=== PATIENT | female | born 1965 | race Caucasian/White ===

== ENCOUNTER → 2016-09-29 10:00 | Outpatient (CLI) | payer MEDICARE, MEDICAID ==
[2016-04-17 09:12] VITALS: BMI 34.7
[~2016-09-29 10:00] MED LIST: BAYER CHEWABLE81 MG PO; BYDUREON SC; DESERYL100 MG PO; FENOFIBRATE134 MG PO; GLUCOPHAGE500 MG PO; INVEGA6 MG/BLIST PO; ISOSORBIDE MONO30 M1 PO; LEXAPRO20 MG PO; LIPITOR40 MG PO; MOBIC7.5 MG PO; NITROSTAT0.4 MG SL; PAXIL40 MG PO; PLAVIX75 MG PO; TOPAMAX50 MG PO; XANAX2 MG PO
== END | disposition home or self-care (01) ==
LOC: D.US 09-22 13:00
DX: R92.8 Other abnormal and inconclusive findings on diagnostic imaging of breast (principal)

== ENCOUNTER 2016-10-01 21:35 | Emergency (ER) | payer MEDICARE, MEDICAID ==
[2016-04-17 09:12] VITALS: BMI 34.7
== END 2016-10-02 00:05 | disposition home or self-care (01) ==
LOC: D.ER 21:35
DX: G43.909 Migraine, unspecified, not intractable, without status migrainosus (principal); F41.9 Anxiety disorder, unspecified; F31.9 Bipolar disorder, unspecified; F43.10 Post-traumatic stress disorder, unspecified

== ENCOUNTER 2016-10-11 13:35 | Emergency (ER) | payer MEDICARE, MEDICAID ==
[2016-04-17 09:12] VITALS: BMI 34.7
[2016-10-11 14:17] LABS: BASOPHILS 0.3 % (0.0-2.0); EOSINOPHILS 2.5 % (0-7); HEMATOCRIT 40.3 % (36.0-48.0); HEMOGLOBIN 13.5 g/dL (12-16); IMMATURE GRANULOCYTES 0.5 % (0-5); LYMPHOCYTES 36.8 % (15-50); MCH 31.5 pg (26.0-34.0); MCHC 33.5 g/dL (31.0-37.0); MCV 94.2 fL (80.0-100.0); MEAN PLATELET VOLUME 9.8 fL (7.4-10.4); MONOCYTES 7.9 % (2-11); PLATELET COUNT 156 10x3/uL (130-400); RBC 4.28 10x6/uL (4.00-5.40); RDW 13.5 % (11.5-14.5); WBC 3.7 10x3/uL (4.8-10.8)
[2016-10-11 14:38] LABS: ALBUMIN 3.3 g/dL (3.4-5.0); ALKALINE PHOSPHATASE 61 U/L (46-116); ALT (SGPT) 60 U/L (10-68); BILIRUBIN - TOTAL 0.44 mg/dL (0.2-1.3); CALC OSMOLALITY 279 mosm/kg (275-300); CARBON DIOXIDE 26.1 mmol/L (21.0-32.0); CHLORIDE - SERUM 103 mmol/L (98-107); CREATININE - SERUM 0.7 mg/dL (0.6-1.3); GLUCOSE 207 mg/dL (74-106); POTASSIUM - SERUM 3.8 mmol/L (3.5-5.1); PROTEIN - SERUM 6.6 g/dL (6.4-8.2); SODIUM 137 mmol/L (136-145); UREA NITROGEN 12 mg/dL (7-18); eGFR NON AFRICAN AMERICAN > 90 mL/min (90-120)
[2016-10-11 14:50] LABS: CKMB 0.4 U/L (0.0-3.6); CREATINE KINASE 30 UL (21-215); TROPONIN-I < 0.017 ng/mL (0.000-0.060)
== END 2016-10-11 15:21 | disposition home or self-care (01) ==
LOC: D.ER 13:35
PROVIDERS: Emergency Medicine
DX: M94.0 Chondrocostal junction syndrome [Tietze] (principal); F41.9 Anxiety disorder, unspecified; F31.9 Bipolar disorder, unspecified; E11.9 Type 2 diabetes mellitus without complications; F43.10 Post-traumatic stress disorder, unspecified; F17.200 Nicotine dependence, unspecified, uncomplicated

== ENCOUNTER 2017-02-15 20:11 | Emergency (ER) | payer MEDICARE, MEDICAID ==
[2016-04-17 09:12] VITALS: BMI 34.7
== END 2017-02-15 21:46 | disposition home or self-care (01) ==
LOC: D.ER 20:11 → EDBD 20:11 → D.ER 21:46
DX: N61.1 Abscess of the breast and nipple (principal); F41.9 Anxiety disorder, unspecified; F31.89 Other bipolar disorder; M94.0 Chondrocostal junction syndrome [Tietze]; F43.10 Post-traumatic stress disorder, unspecified

== ENCOUNTER 2017-03-03 16:59 | Emergency (ER) | payer MEDICARE, MEDICAID ==
[2016-04-17 09:12] VITALS: BMI 34.7
== END 2017-03-03 17:00 | disposition left against medical advice (07) ==
LOC: D.ER 16:59
DX: K08.89 Other specified disorders of teeth and supporting structures (principal)

== ENCOUNTER 2017-04-02 13:57 | Emergency (ER) | payer MEDICARE, MEDICAID ==
[2016-04-17 09:12] VITALS: BMI 34.7
== END 2017-04-02 18:46 | disposition home or self-care (01) ==
LOC: D.ER 13:57
DX: K59.00 Constipation, unspecified (principal); F17.200 Nicotine dependence, unspecified, uncomplicated

== ENCOUNTER → 2017-08-22 05:43 | Outpatient (CLI) | payer MEDICARE, MEDICAID ==
[2016-04-17 09:12] VITALS: BMI 34.7
--- NOTE | ~2017-08-22 | HEMODYNAMI ---
PATIENT:BRIAN BINGHAM MEDICAL RECORD: [id number] : 65 LOCATION:[facility] ADMISSION DATE: 08/22/17 Generatedon:08/22/20179:43 Patient name: BRIAN BINGHAM Patient #: [id number] SSN: : 1965 Date of study: 08/22/2017 Page: Of Hemodynamic Procedure Report Patient Data Patient Demographics Procedure consent was obtained First Name: BRIAN Gender: Female Last Name: ZACHERY : 1965 Middle Initial: BIBI Age: 52 year(s) Patient #: [id number] Race: Additional ID: [id number] Contact details Address: [address] [place] [address] State: [place] City: [facility] Zip code: [address] Past Medical History History of disease Date Diagnosis Comments CAD Allergies: No known allergies Admission Admission Data Admission Date: 08/22/2017 Admission Time: 5:43 Lab Results Lab Result Date: 08/22/2017 Lab Result Time: 0:00 Biochemistry Name Units Result Min Max BUN mg/dl 10 --(-*--)-- 7 18 Creatinine mg/dl 0.6 --(*---)-- 0.6 1.3 CBC Name Units Result Min Max Hemoglobin g/dl 14.5 --(*---)-- 13.5 17.5 Procedure Procedure Types Cath Procedure Diagnostic Procedure C [facility] w/Coronaries FFR/IVUS Intra-Coronary IVUS Initial PCI Procedure Coronary Stent Miscellaneous Procedures Moderate Sedation up to 15 minutes Procedure Description Procedure Date Procedure Date: 08/22/2017 Procedure Start Time: 9:25 Procedure End Time: 9:43 Procedure Staff Name Function Kevin Shafer MD Performing Physician Dragan Alves RN Nurse Evonne Hallman RN Nurse Khadijah Livingston RT Monitor Umm Weldon RT Scrub Procedure Data Cath Procedure Fluoroscopy Diagnostic fluoroscopy Total fluoroscopy Time: 3.6 time: 3.6 min min Diagnostic fluoroscopy Total fluoroscopy dose: 842 dose: 842 mGy mGy Contrast Material Contrast Material Type Amount (ml) Isovue 300 92 Entry Location Entry Primary Successful Side Size Upsize Upsize Entry Closure Succes sful Closure Location (Fr) 1 (Fr) 2 (Fr) Remarks Device Remarks Femoral Right 5 Fr 6 Fr Exoseal artery Short Estimated blood loss: 10 ml Diagnostic catheters Device Type Used For End Catheter Placement MULTIPACK Pigtail 5 Fr Procedure catheter MULTIPACK JL 4.0 5Fr Procedure catheter MULTIPACK 3DRC 5Fr Procedure catheter Procedure Complications No complications Procedure Medications Medication Administration Route Dosage 0.9% NaCl I.V. 100 ml/hr Oxygen NC 2 l/min Lidocaine 2% added to field 20 Heparin Flush Bag added to field 2 bags (1000units/500ml NS) Benadryl I.V. 50 mg Radial Cocktail added to field 1 syringe (Verapomil 2mg/Nitro 400mcg/Heparin 1500units) Fentanyl I.V. 50 mcg Versed I.V. 1 mg Versed I.V. 1 mg Fentanyl I.V. 50 mcg Versed I.V. 1 mg Versed I.V. 1 mg Integrilin (Bolus I.V. 6.8 ml 2mg/ml) Heparin Bolus I.V. 4000 units Plavix P.O. 600 mg Hemodynamics Rest HGB: 14.5 (g/dl) Heart Rate: 64 (bpm) Snapshots Pre Cath Intra NCS Post Cath Vital Signs Time Heart Resp SPO2 etCO2 NIBP (mmHg) Rhythm Pain Sedation Rate (ipm) (%) (mmHg) Status Level (bpm) 9:09:16 64 20 100 31.8 108/70(81) NSR 0 (11) 10(A) , No pain 9:13:19 59 20 98 28.8 109/73(87) NSR 0 (11) 10(A) , No pain 9:17:25 61 19 100 31.8 121/75(105) NSR 0 (11) 10(A) , No pain 9:21:33 70 25 94 30.3 107/78(90) NSR 0 (11) 9(A) , No pain 9:25:39 62 20 97 42.4 100/68(81) NSR 0 (11) 9(A) , No pain 9:29:36 81 16 94 11.3 118/84(110) NSR 0 (11) 9(A) , No pain 9:33:42 82 14 94 31 132/83(114) NSR 0 (11) 9(A) , No pain 9:37:54 81 18 99 42.4 124/81(104) NSR 0 (11) 10(A) , No pain 9:42:04 75 11 98 42.4 115/80(98) NSR 0 (11) 10(A) , No pain Medications Time Medication Route Dose Verified Delivered Reason Note s Effectiveness by by 9:08:44 0.9% NaCl I.V. 100ml/hr Kevin Evonne used for Hollis Hallman RN procedure 9:08:54 Oxygen NC 2 l/min Kevin Evonne Per physician Hollis Hallman RN 9:09:07 Lidocaine 2% added 20ml Kevin Kevin for local to vial Hollis Shafer MD anesthetic field 9:09:17 Heparin Flush added 2 bags Kevin Brown used for Bag to Hollis Shafer MD procedure (1000units/500ml field NS) 9:11:06 Benadryl I.V. 50 mg Kevin Brown used for Hollis Shafer MD procedure 9:18:30 Radial Cocktail added 1 Kevinbrenda Brown for (Verapomil to syringe Hollis Shafer MD vasodilation 2mg/Nitro field 400mcg/Heparin 1500units) 9:19:07 Fentanyl I.V. 50 mcg Kevin Zamorafany for sedation Hollis Hallman RN 9:19:16 Versed I.V. 1 mg Kevin Zamorafany for sedation Hollis Hallman RN 9:23:38 Versed I.V. 1 mg Kevin Zamorafany for sedation Hollis Hallman RN 9:23:48 Fentanyl I.V. 50 mcg Kevin Zamorafany for sedation Hollis Hallman RN 9:25:48 Versed I.V. 1 mg Kevin Zamorafany for sedation Hollis Hallman RN 9:29:33 Heparin Bolus I.V. 4000 Kevin Evonne for veri fied units Hollis Hallman RN anticoagulation by 9:29:37 Integrilin I.V. 6.8 ml Kevin Zamorafany for veri fied (Bolus 2mg/ml) Hollis Hallman RN antiplatelet with therapy . waste 3.2ml 9:31:37 Versed I.V. 1 mg Kevin Douglass for sedation Hollis Hallman RN 9:32:59 Plavix P.O. 600 mg Kevin Douglass for veri fied Hollis Hallman RN antiplatelet by therapy Procedure Log Time Note 8:39:26 Informed consent obtained and on chart 8:39:31 Diagnostic Cath Status : Elective 8:40:17 Umm Weldon RT(R) sent for patient. Start room use. 8:40:18 Time tracking: Regular hours 8:40:23 Plan of Care:Hemodynamics will remain stable., Cardiac rhythm will remain stable., Comfort level will be maintained., Respiratory function will remain adequate., Patient/ family verbilizes understanding of procedure., Procedure tolerated without complication., Recovers from procedure without complications.. 8:51:12 Lab Result : BUN 10 mg/dl 8:51:12 Lab Result : Hemoglobin 14.5 g/dl 8:51:12 Lab Result : Creatinine 0.6 mg/dl 9:00:03 Patient received from ED to CCL 2 Alert and oriented. Tansferred to table in Supine position. 9:00:04 Warm blankets applied, and kike hugger turned on for patient comfort. 9:00:05 Correct patient and procedure confirmed by team. 9:00:05 ECG and BP/O2 sat monitors applied to patient. 9:08:16 Vital chart was started 9:08:25 Baseline sample Acquired. 9:08:29 Rhythm: sinus rhythm 9:08:30 Full Disclosure recording started 9:08:34 H&P Date Dictated: 08/22/2017 New H&P dictated by physician.. 9:08:35 Pre-procedure instructions explained to patient. 9:08:36 Pre-op teaching completed and patient verbalized understanding. 9:08:37 Family in waiting room. 9:08:38 Patient NPO since Midnight. 9:08:44 0.9% NaCl 100ml/hr I.V. was administered by Evonne Hallman RN; used for procedure; 9:08:50 Is the patient allergic to Iodine/contrast media? No. 9:08:53 Was the patient premedicated? No 9:08:54 Oxygen 2 l/min NC was administered by Evonne Hallman RN; Per physician; 9:09:02 Is patient on blood thinner?No 9:09:07 Lidocaine 2% 20ml vial added to field was administered by Kevin Shafer MD; for local anesthetic; 9:09:17 Heparin Flush Bag (1000units/500ml NS) 2 bags added to field was administered by Kevin Shafer MD; used for procedure; 9:11:06 Benadryl 50 mg I.V. was administered by Kevin Shafer MD; used for procedure; 9:17:39 Patient diabetic? Yes. 9:17:40 If diabetic: On Metformin? No 9:17:45 Snore? Yes 9:17:46 Sleep apnea? Yes 9:17:53 Dentures? No ? 9:18:04 Patient pain scale 0/10 ?. 9:18:11 IV patent on arrival in left forearm with 0.9% NaCl at [facility]. 9:18:16 Lab results completed and on chart. 9:18:23 Right Radial & Right Groin area was prepped with chlora-prep and draped in sterile fashion 9:18:24 Alarms reviewed by R. N. 9:18:25 Sharps counted by scrub and verified by R.N. 9:18:26 Physician paged 9:18:26 Physician arrived 9:18:27 --------ALL STOP TIME OUT------ 9:18:28 Final Timeout: patient, procedure, and site verified with staff and physician. All members of the team are in agreement. 9:18:30 Radial Cocktail (Verapomil 2mg/Nitro 400mcg/Heparin 1500units) 1 syringe added to field was administered by Kevin Shafer MD; for vasodilation; 9:18:30 Right Radial & Right Groin site verified by team. 9:18:33 Physical assessment completed. ASA score P 2 - A patient with mild systemic disease as per Kevin Shafer MD. 9:18:39 Sedation plan: IV Moderate Sedation Medication:Versed, Fentanyl 9:19:07 Fentanyl 50 mcg I.V. was administered by Evonne Hallman RN; for sedation; 9:19:16 Versed 1 mg I.V. was administered by Evonne Hallman RN; for sedation; 9:21:32 Zero performed for pressure channel P1 9:21:48 Procedure started. 9:23:38 Versed 1 mg I.V. was administered by Evonne Hallman RN; for sedation; 9::48 Fentanyl 50 mcg I.V. was administered by Evonne Hallman RN; for sedation; 9:24:01 Use device set Femoral Dx 9:25:04 Local anesthetic to right femoral artery with Lidocaine 2% by Kevin Shafer MD.INITIAL ACCESS ONLY 9:25:06 ACIST Syringe (79861) opened to sterile field. 9:25:06 Bag Decanter (2002S) opened to sterile field. 9:25:07 Medline Cath Pack ([id number]) opened to sterile field. 9:25:07 SHEATH 5FR [place] (JRE255) opened to sterile field. 9:25:08 DIAGNOSTIC WIRE .035 260cm J wire (329972) opened to sterile field. 9:25:12 ACIST Hand Control (41480) opened to sterile field. 9:25:12 ACIST Manifold (61509) opened to sterile field. 9:25:13 DIAGNOSTIC Multipack 5Fr catheter set (JL2764) opened to sterile field. 9:25:13 Tegaderm 4 x 4 (1626W) opened to sterile field. 9:25:14 PERCUTANEOUS ENTRY 19GA needle opened to sterile field. 9:25:48 Versed 1 mg I.V. was administered by Evonne Hallman RN; for sedation; 9::48 A 5 Fr sheath was inserted into the Right Femoral artery 9:26:29 A MULTIPACK Pigtail 5 Fr catheter was advanced over the wire and used for Procedure. 9:27:01 EF : 50 % 9:27:04 Catheter removed. 9:27:14 A MULTIPACK JL 4.0 5Fr catheter was advanced over the wire and used for Procedure. 9:28:26 Catheter removed. 9:28:36 A MULTIPACK 3DRC 5Fr catheter was advanced over the wire and used for Procedure. 9:29:33 Heparin Bolus 4000 units I.V. was administered by Evonne Hallman RN; for anticoagulation; verified by 9:29:37 Integrilin (Bolus 2mg/ml) 6.8 ml I.V. was administered by Evonne Hallman RN; for antiplatelet therapy; verified with . waste 3.2ml 9:30:57 GUIDE 6FR AR 2.0 SH catheter ([id number]) opened to sterile field. 9:30:58 WHISPER 300cm guide wire ([id number]) opened to sterile field. 9:30:59 INFLATOR Merit BasixCompak (OX8768) opened to sterile field. 9:31:00 SHEATH 6FR [place] (INP996) opened to sterile field. 9:31:09 [place] Level[place] Eagleye IVUS Catheter (76359M) opened to sterile field. 9:31:11 Proceeding to intervention. 9:31:36 Sheath upsized to a 6 Fr Short. 9:31:37 Versed 1 mg I.V. was administered by Evonne Hallman RN; for sedation; 9:31:42 6 Fr AR 2 guide catheter was inserted over the wire 9:31:47 ? wire advanced. 9:31:51 Wire advanced across lesion. 9:32:59 Plavix 600 mg P.O. was administered by Evonne Hallman RN; for antiplatelet therapy; verified by 9:33:59 IVUS catheter removed over wire. 9:36:49 Inflation Number: 1 A INTEGRITY OTW 3.0 X 30 stent ([id number]) was prepped and advanced across the Prox RCA. The stent was deployed at 11 CHARANJIT for 0:13 (min:sec). 9:40:22 EXOSEAL 6Fr (EX600) opened to sterile field. 9:40:29 Wire removed. 9:40:30 Guide catheter removed. 9:40:43 Sheath removed intact; hemostasis achieved with Exoseal to the Right Femoral artery. 9:40:46 Procedure ended.(Physican Out) 9:40:59 Fluoroscopy time 03.60 minutes. 9:41:03 Fluoroscopy dose: 842 mGy 9:41:03 Flurop Dose total: 842 9:41:16 Contrast amount:Isovue 300 92ml. 9:41:19 Sharps counted by scrub and verified by R.N. 9:41:24 Insertion/operative site no bleeding no hematoma. 9:41:29 Post-op/insertion site Right Femoral artery dressed using a 4 x 4 and Tegaderm. 9:41:31 Post Procedure Pulses reassessed and unchanged 9:41:34 Post-procedure physical assessment completed. ASA score P 2 - A patient with mild systemic disease as per Kevin Shafer MD. 9:41:43 Post procedure rhythm: sinus rhythm 9:42:05 Estimated blood loss: 10 ml 9:42:07 Post procedure instruction explained to patient.Patient verbalizes understanding. 9:42:09 Patient needs reinforcement of post procedure teaching. 9:42:35 Procedure type changed to Cath procedure, Diagnostic procedure, LHC, C w/Coronaries, FFR/IVUS, Intra-Coronary IVUS Initial, PCI procedure, Coronary Stent, Miscellaneous Procedures, Moderate Sedation up to 15 minutes 9:42:37 Procedure and supply charges have been captured, reviewed, submitted and are correct. 9:43:02 Procedure Complication : No complications 9:43:05 Vital chart was stopped 9:43:05 See physician's report for complete and final results. 9:43:07 Report given to Pre/Post Procedure Room. 9:43:12 Patient transfered to Pre/Post Procedure Room with Stretcher. 9:43:14 Procedure ended. 9:43:14 Full Disclosure recording stopped 9:43:19 End room use (Document Last) Intervention Summary Intervention Notes Time ActionType Lesion and Equipment Action# Pressure Duration Attributes Used 9:36:[address] Place stent Prox RCA INTEGRITY 1 11 00:13 OTW 3.0 X 30 stent ([id number]) Device Usage Item Name Manufacture Quantity Catalog Hospital Part Current Minimal Lot# / Number Charge Number Stock Stock Serial# Code ACIST Acist 1 44670 633308 888413 617221 20 Syringe Medical (24854) Systems Inc Bag Decanter Microtek 1 2001S 399569 77843 094516 5 () Medical Inc. Medline Cath Cardinal 1 [id number] 673375 26525 826895 5 Pack Health ([id number]) SHEATH 5FR Terumo 1 HOA684 473985 123762 303579 40 [place] (SUW200) DIAGNOSTIC [place] 1 833425 800144 345753 077735 30 WIRE .035 260cm J wire (767282) ACIST Hand Acist 1 01254 000056 973128 843597 5 Control Medical (18870) Systems Inc ACIST Acist 1 95776 055707 888637 926396 5 Manifold Medical (98087) Systems Inc DIAGNOSTIC Cardinal 1 HZ5247 144362 61255 595624 30 Multipack Health 5Fr catheter set (YK6228) Tegaderm 4 x 3M 1 1626W 857208 067212 386851 5 4 (1626W) PERCUTANEOUS [place] Medical 1 N93257 827786 562222 5 ENTRY 19GA needle MULTIPACK Cardinal 1 514210 5 Pigtail 5 Fr Health catheter MULTIPACK JL Cardinal 1 532525 5 4.0 5Fr Health catheter MULTIPACK Cardinal 1 361982 5 3DRC 5Fr Health catheter GUIDE 6FR AR Medtronic 1 [id number] 897515 47497 441218 1 2.0 SH catheter ([id number]) WHISPER Ugevara 1 [id number] 941350 025922 946352 5 300cm guide Vascular wire ([id number]) INFLATOR [employer]orum[employer].com 1 CA8907 421160 322224 995212 15 [employer] Medical BasixCompak (PH1802) SHEATH 6FR Terumo 1 NMW131 478009 837783 571306 40 [place] (TGI990) [place] 1 25403A 225796 376243 981414 8 Level[place] Eagleye IVUS Catheter (21480O) INTEGRITY Medtronic 1 [id number] 896343 734208 7 [id number] OTW 3.0 X 30 stent ([id number]) EXOSEAL 6Fr Cardinal 1 EX600 189898 583217 721217 10 (EX600) Health Signature Audit [place] Stage Time Signature Unsigned Intra-Procedure 08/22/2017 Khadijah Livingston 9:43:46 AM RT(R) Signatures Monitor : Khadijah Livingston Signature : RT Date : Time : [facility] [address] [place] [address]
[2017-08-22 06:35] LABS: BASOPHILS 0.2 % (0-2); EOSINOPHILS 0.5 % (0-7); HEMATOCRIT 41.5 % (36.0-48.0); HEMOGLOBIN 14.5 g/dL (12-16); IMMATURE GRANULOCYTES 0.9 % (0-5); LYMPHOCYTES 25.4 % (15-50); MCH 31.9 pg (26.0-34.0); MCHC 34.9 g/dL (31.0-37.0); MCV 91.2 fL (80.0-100.0); MEAN PLATELET VOLUME 10.1 fL (7.4-10.4); MONOCYTES 8.6 % (2-11); NEUTROPHILS 64.4 % (40-80); RBC 4.55 10x6/uL (4.00-5.40); RDW 13.4 % (11.5-14.5); WBC 5.7 10x3/uL (4.8-10.8)
[2017-08-22 06:39] LABS: PLATELET COUNT 193 10x3/uL (130-400)
[2017-08-22 06:56] LABS: ALBUMIN 3.2 g/dL (3.4-5.0); ALKALINE PHOSPHATASE 63 U/L (46-116); ALT (SGPT) 36 U/L (10-68); BILIRUBIN - TOTAL 0.75 mg/dL (0.2-1.3); CALC OSMOLALITY 281 mosm/kg (275-300); CALCIUM 8.8 mg/dL (8.5-10.1); CARBON DIOXIDE 25.2 mmol/L (21.0-32.0); CHLORIDE - SERUM 99 mmol/L (98-107); CREATININE - SERUM 0.6 mg/dL (0.6-1.3); POTASSIUM - SERUM 3.3 mmol/L (3.5-5.1); PROTEIN - SERUM 6.7 g/dL (6.4-8.2); SODIUM 137 mmol/L (136-145); UREA NITROGEN 10 mg/dL (7-18); eGFR NON AFRICAN AMERICAN > 90 mL/min (90-120)
[2017-08-22 07:01] LABS: GLUCOSE 262 mg/dL (74-106)
[2017-08-22 07:12] LABS: CHOL - HDL RATIO 8.3 ratio (2.3-4.1); CHOLESTEROL, TOTAL 224 mg/dL (0-200); CKMB 0.5 U/L (0.0-3.6); CREATINE KINASE 21 UL (21-215); HDL CHOLESTEROL 27 mg/dL (32-96); LDL CHOLESTEROL 150 mg/dL (0-100); LDL-HDL RATIO 5.6 ratio (1.5-3.5); TRIGLYCERIDE 236 mg/dL (30-200)
[2017-08-22 07:19] LABS: TROPONIN-I 0.083 ng/mL (0.000-0.060)
[2017-08-22 07:45] LABS: MAGNESIUM - SERUM 1.5 mg/dL (1.8-2.4)
--- NOTE | 2017-08-22 10:17 | NUR ---
1010 LYING FLAT, ROOM AIR. NSR ON ESCROW PROCESSOR, RATE 67 WITH NO C/O CHEST PAIN. PULSES PALP X 4. R GROIN 6F EXOSEAL C/D/I W NO HEMATOMA OR BLEEDING. NO FAMILY AT SIDE.
--- NOTE | 2017-08-22 10:37 | NUR ---
LYING FLAT, DAUGHTER LUZ AT BEDSIDE. PATIENT VITALS ALL WNL. ROOM AIR. R GROIN 6F EXOSEAL C/D/I W NO HEMATOMA OR BLEEDING. EATING TURKEY SANDWICH AND SIPPING WATER WITH ASSIST FROM DAUGHTER. DENIES NEEDS AT THIS TIME.
--- NOTE | 2017-08-22 11:09 | NUR ---
RESTING QUIETLY WITH FAMILY AT SIDE DENIED PAIN OR NEEDS 6 FR EXOSEAL R/GROIN CDI
--- NOTE | 2017-08-22 12:03 | NUR ---
VOICED NO COMPLAINTS WITH 6 FR EXOSEAL R/GROIN CDI VSS
--- NOTE | 2017-08-22 12:35 | NUR ---
RESTING QUIETLY WITH EYES CLOSED NO DISTRESS R/GROIN CDI
--- NOTE | 2017-08-22 13:33 | NUR ---
REPOSITIONED TO SITTING WITH HOB UP 30 DEGREES FOR COMFORT. R/GROIN CDI NO BLEEDING NO HEMATOMA NOTED. PIV REMOVED WITH DRESSING APPLIED. PATIENT DENIED CHEST PAIN
--- NOTE | 2017-08-22 13:55 | NUR ---
VERBAL AND WRITTEN DISCHARGE GONE OVER WITH PATIENT R/GROIN CDI NO BLEEDING NOTED. LEFT VIA WC TO PARKING FOR TRANSPORT HOME
--- NOTE | 2017-08-28 12:15 | OP ---
PATIENT NAME: BRIAN BINGHAM MEDICAL RECORD: [id number] :65 LOCATION:D.CAT ADMISSION DATE: SURGEON: EMELY STAHL MD DATE OF OPERATION: 08/22/2017 PROCEDURES: 1. PTCA stent to RCA. 2. Intravascular ultrasound to RCA. 3. Left heart catheterization. 4. Selective coronary angiography. 5. Left ventriculogram. INDICATION: Angina and coronary artery disease. PROCEDURE IN DETAIL: After informed consent was obtained and after a detailed explanation of the risks, benefits as well as alternative therapies, the patient elected to proceed with angiogram and angioplasty. The right femoral area was prepped and draped in normal sterile fashion. The right femoral artery was cannulated via modified Seldinger technique with placement of 6-[place]izen [place] sheath. All catheters exchanged through this sheath. FINDINGS: The left ventriculogram was performed in standard 30-degree ZUÑIGA view, reveals good cardiac wall motion throughout all segments. Overall ejection fraction estimated 60%. SELECTIVE CORONARY ANGIOGRAPHY: 1. Left main has no significant angiographic disease. 2. Left anterior descending has [id number] irregularities, but no flow-limiting stenosis. 3. The left circumflex has previously placed stent that is widely patent. Obtuse marginal comes off in the stented area with 90% stenosis. 4. The right coronary artery has a long area of greater than 70% stenosis in the mid vessel confirmed by intravascular ultrasound. PTCA STENT OF THE RIGHT CORONARY ARTERY: The stent used was 3.0 x 30 mm Integrity. Result was 0% residual stenosis. OVERALL IMPRESSION: Successful percutaneous transluminal coronary angioplasty stent of the right coronary artery going from greater than 70% initial stenosis to 0% residual stenosis. TRANSINT:[id number] Voice Confirmation ID: [id number] DOCUMENT ID: [id number] EMELY STAHL MD at 1215 CC: [id number] DICTATION DATE: 08/22/17 0942 SAP PORTAL DEVELOPER: 08/22/17 1214 [facility] CLI 08/22/[address] [address]
--- NOTE | 2017-08-28 12:15 | CN ---
PATIENT NAME:BRIAN HERNANDEZ MEDICAL RECORD: [id number] : 65 LOCATION:D.CAT ADMIT DATE: ACCOUNT: [id number] CONSULTING PHYSICIAN: EMELY STAHL MD REFERRING PHYSICIAN: GIGI COBOS MD DATE OF CONSULTATION: 08/22/2017 CARDIOLOGY CONSULT DIAGNOSES: 1. Chest pain compatible with angina. 2. Coronary artery disease. 3. Previous multivessel PTCA and stent in 2014. 4. Hypertension. 5. Hyperlipidemia. HISTORY: Ms. Hernandez presents with 2 days of increasing anginal symptomatology in an unstable fashion, just like that of her previous angina. Last cardiac intervention was 2 years ago. She had 2-vessel PTCA and stent at that time. REVIEW OF SYSTEMS: The patient reports easy bruising but reports no swollen glands. The patient reports no fever, no night sweats, no significant weight gain, no significant weight loss. No significant exercise tolerance. The patient reports no dry eyes, no irritation, no vision change. Patient reports no difficulty hearing and no ear pain. Patient reports no frequent nose bleeds or nose and sinus problems. Patient reports on arm pain on exertion. No shortness of breath while lying down. No history of heart murmur. Patient reports no cough, no wheezing or coughing up blood. Patient reports no abdominal pain, no vomiting. Normal appetite. No diarrhea and not vomiting blood. No nausea and no constipation. Patient reports no incontinence. No difficulty urinating. No hematuria. No increased frequency. Patient reports no muscle aches. No weakness, no arthralgias, no back pain. No swelling of the extremities. Patient reports no abnormal mole, no jaundice, no rashes. Reports no loss of consciousness. No weakness and no numbness. No seizures, dizziness, or headaches. The patient reports no depression, no sleep disturbance, feeling safe in a relationship and no alcohol abuse. Patient reports on fatigue. Reports no runny nose or sinus pressure. No itching, no hives, and no frequent sneezing. PHYSICAL EXAMINATION: GENERAL APPEARANCE: Well-nourished, well-developed, appears stated age. Level of distress, comfortable. PSYCHIATRIC: Mental status, alert, normal affect. Orientation, oriented to time, place and person. EYES: Lids and conjunctiva, noninjected. No discharge, no pallor. ENT: Lips, teeth, gums, normal dentition. Oropharynx, no cyanosis, no pallor. NECK: Carotid arteries, bilateral normal upstroke, no bruits, no thrills. JUGULAR VEINS: No jugular venous pressure or distention. CERVICAL LYMPH NODES: Nontender, nonenlarged. THYROID: Not enlarged. Nontender. No nodules. LUNGS: Respiratory effort, unlabored. CHEST: Normal curvature. No thoracic deformity. No chest wall tenderness. Percussion, resonant. Auscultation, clear. No wheezes, no rales, no rhonchi. CARDIOVASCULAR: Precordial exam, nondisplaced. No heaves or pericardial thrills. Rate and rhythm, regular. Heart sounds, normal S1, normal S2. No S3, CONSULT REPORT [id number] BRIAN HERNANDEZ no gallop, no rub. Systolic murmur, not heard. Diastolic murmur, not heard. EXTREMITIES: No cyanosis, no edema. Peripheral pulses, full and equal in all extremities, except as noted. No bruits appreciated. ABDOMEN: Soft, nondistended. Normal aorta. No bruit. Nontender. No masses. Liver, nontender, no hepatomegaly. Spleen, nontender, no splenomegaly. MUSCULOSKELETAL: No joint tenderness. No joint swelling. No erythema. NEUROLOGICAL: Normal gait, normal strength, normal tone. SKIN: Warm and dry. OVERALL IMPRESSION: Unstable anginal symptomatology and past history of coronary artery disease. We will proceed with repeat coronary angiography. Further care depends on findings of the angiography. TRANSINT:[id number] Voice Confirmation ID: [id number] DOCUMENT ID: [id number] EMELY STAHL MD at 1215 CC: [id number] DICTATION DATE: 08/22/17919 HEAVY DUTY TRUCK MECHANIC: 08/22/17 1216 [facility] CLI 08/22/17 [place] [address]
== END | disposition home or self-care (01) ==
LOC: D.ER 05:43 → D.CATH 05:43 → EDSTATUS 10:30
PROVIDERS: Emergency Medicine
DX: I25.119 Atherosclerotic heart disease of native coronary artery with unspecified angina pectoris (principal); Z95.5 Presence of coronary angioplasty implant and graft; Z01.812 Encounter for preprocedural laboratory examination

== ENCOUNTER → 2017-08-28 07:45 | Outpatient (CLI) | payer MEDICARE, MEDICAID ==
[~2017-08-28] VITALS: Ht 157.5 cm; Wt 77.3 kg
--- NOTE | ~2017-08-28 | HEMODYNAMI ---
PATIENT:BRIAN BINGHAM MEDICAL RECORD: [id number] : 65 LOCATION:DSHUN ADMISSION DATE: 08/28/17 Generatedon:08/28/201710:04 Patient name: BRIAN BINGHAM Patient #: [id number] SSN: : 1965 Date of study: 08/28/2017 Page: Of Hemodynamic Procedure Report Patient Data Patient Demographics Procedure consent was obtained First Name: BRIAN Gender: Female Last Name: ZACHERY : 1965 Middle Initial: BIBI Age: 52 year(s) Patient #: [id number] Race: Additional ID: [id number] Contact details Address: [address] [place] [address] State: [place] City: [facility] Zip code: [address] Past Medical History History of disease Date Diagnosis Comments CAD Allergies: No known allergies Admission Admission Data Admission Date: 08/28/2017 Admission Time: 7:45 Lab Results Lab Result Date: 08/28/2017 Lab Result Time: 8:15 Biochemistry Name Units Result Min Max BUN mg/dl 11 --(-*--)-- 7 18 Creatinine mg/dl 0.7 --(*---)-- 0.6 1.3 CBC Name Units Result Min Max Hematocrit % 45.6 --(-*--)-- 42 54 Hemoglobin g/dl 16.1 --(--*-)-- 13.5 17.5 Procedure Procedure Types Cath Procedure PCI Procedure Coronary Stent Coronary Stent Initial Miscellaneous Procedures Moderate Sedation up to 15 minutes Procedure Description Procedure Date Procedure Date: 08/28/2017 Procedure Start Time: 9:47 Procedure End Time: 10:02 Procedure Staff Name Function Kevin Shafer MD Performing Physician Inder Packer RT Monitor Cheryl Amaral RT Scrub Brad Zuniga RN Nurse Procedure Data Cath Procedure Fluoroscopy Diagnostic fluoroscopy Total fluoroscopy Time: 2.7 time: 2.7 min min Diagnostic fluoroscopy Total fluoroscopy dose: 319 dose: 319 mGy mGy Contrast Material Contrast Material Type Amount (ml) Isovue 300 53 Entry Location Entry Primary Successful Side Size Upsize Upsize Entry Closure Succes sful Closure Location (Fr) 1 (Fr) 2 (Fr) Remarks Device Remarks Femoral Right 6 Fr Exoseal artery Short Estimated blood loss: 10 ml Procedure Complications No complications Procedure Medications Medication Administration Route Dosage 0.9% NaCl I.V. 100 ml/hr Oxygen NC 2 l/min Heparin Flush Bag added to field 2 bags (1000units/500ml NS) Lidocaine 2% added to field 20 Versed I.V. 1 mg Fentanyl I.V. 50 mcg Fentanyl I.V. 25 mcg Versed I.V. 0.5 mg Heparin Bolus I.V. 4000 units Versed I.V. 0.5 mg Fentanyl I.V. 25 mcg Hemodynamics Rest HGB: 16.1 (g/dl) Heart Rate: 78 (bpm) Snapshots Pre Cath Intra NCS Post Cath Vital Signs Time Heart Resp SPO2 etCO2 NIBP Rhythm Pain Sedation Rate (ipm) (%) (mmHg) (mmHg) Status Level (bpm) 9:42:56 79 23 100 35.5 100/76(88) NSR 0 (11) 10(A) , No pain 9:47:30 74 16 94 40.8 92/58(73) NSR 0 (11) 10(A) , No pain 9:52:35 72 14 97 44.5 124/79(98) NSR 0 (11) 10(A) , No pain 9:57:09 66 14 97 30.9 117/71(94) NSR 0 (11) 10(A) , No pain 10:01:44 78 15 96 43.1 125/76(98) NSR 0 (11) 10(A) , No pain Medications Time Medication Route Dose Verified Delivered Reason Notes Effectiveness by by 9:41:09 0.9% NaCl I.V. 100 Brad Brad Per physician ml/hr Efrain Zuniga RN RN 9:41:31 Oxygen NC 2 Brad Brad Per physician l/min Efrain Zuniga RN RN 9:41:43 Heparin Flush added 2 Brad Brad used for Bag to bags Efrain Zuniga procedure (1000units/500ml field GUERO JACK NS) 9:42:05 Lidocaine 2% added 20ml Brad Brad for local to vial Lorigan Efrain anesthetic field RN RN 9:47:17 Versed I.V. 1 mg Brad Brad for sedation Efrain Zuniga RN RN 9:47:26 Fentanyl I.V. 50 Brad Brad for sedation mcg Efrain Zuniga RN RN 9:48:42 Fentanyl I.V. 25 Brad Brda for sedation mcg Efrain Zuniga RN RN 9:48:50 Versed I.V. 0.5 Brad Brad for sedation mg Efrain Zuniga RN RN 9:50:40 Heparin Bolus I.V. 4000 Brad Brad for units Lordaniela Zuniga anticoagulation RN RN 9:58:02 Versed I.V. 0.5 Brad Brad for sedation mg Efrain Zuniga RN RN 9:58:08 Fentanyl I.V. 25 Brad Brad for sedation mcg Efrain Zuniga RN soda jerker Log Time Note 9:23:54 Brad Zuniga RN sent for patient. Start room use. 9:23:55 Time tracking: Regular hours 9:23:58 Plan of Care:Hemodynamics will remain stable., Cardiac rhythm will remain stable., Comfort level will be maintained., Respiratory function will remain adequate., Patient/ family verbilizes understanding of procedure., Procedure tolerated without complication., Recovers from procedure without complications.. 9:24:00 Signed procedure consent form obtained from patient. 9:24:03 Diagnostic Cath status Elective 9:30:58 Patient received from Pre/Post Procedure Room to CCL 1 Alert and oriented. Tansferred to table in Supine position. 9:30:59 Warm blankets applied, and kike hugger turned on for patient comfort. 9:30:59 Correct patient and procedure confirmed by team. 9:31:00 ECG and BP/O2 sat monitors applied to patient. 9:35:18 H&P Date Dictated: 08/22/2017 Within 30 days and on chart., H&P Addendum completed by physician on day of procedure. (MUST COMPLETE FOR ALL OUTPATIENTS). 9:35:19 Pre-procedure instructions explained to patient. 9:35:19 Pre-op teaching completed and patient verbalized understanding. 9:35:20 Family in waiting room. 9:41:09 0.9% NaCl 100 ml/hr I.V. was administered by Brad Zuniga RN; Per physician; 9:41:31 Oxygen 2 l/min NC was administered by Brad Zuniga RN; Per physician; 9:41:43 Heparin Flush Bag (1000units/500ml NS) 2 bags added to field was administered by Brad Zuniga RN; used for procedure; 9:42:05 Lidocaine 2% 20ml vial added to field was administered by Brad Zuniga RN; for local anesthetic; 9:42:10 Vital chart was started 9:43:51 Baseline sample Acquired. 9:43:54 Rhythm: sinus rhythm 9:43:55 Full Disclosure recording started 9:44:02 Patient NPO since Midnight. 9:44:06 Patient allergic to No known allergies 9:44:08 Is the patient allergic to Iodine/contrast media? No. 9:44:09 Is patient on blood thinner?Yes 9:44:11 ACC The patient was administered the following blood thiners within the last 24 hours: ACCPlavix 9:44:14 Patient diabetic? Yes. 9:44:15 If diabetic: On Metformin? No 9:44:18 Previous problem with sedation/anesthesia? No ? 9:44:24 Snore? Yes 9:44:25 Sleep apnea? No 9:44:27 Deviated septum? No 9:44:28 Opens mouth fully? Yes 9:44:28 Sticks out tongue? Yes 9:44:30 Airway obstruction? No ? 9:44:31 Dentures? No ? 9:44:34 Pre procedure: right dorsailis pedis pulse 1+ Palpable, but thready & weak; easily obliterated 9:44:38 Patient pain scale 0/10 ?. 9:44:46 IV patent on arrival in left hand with 0.9% [facility] at [facility]. 9:45:20 Lab results completed and on chart. 9:45:23 Right groin area was prepped with chlora-prep and draped in sterile fashion 9:45:24 Alarms reviewed by R. N. 9:45:24 Sharps counted by scrub and verified by R.N. 9:45:35 SHEATH 6FR Ruby (LSH902) opened to sterile field. 9:45:36 INFLATOR Merit BasixCompak ([id number]) opened to sterile field. 9:46:09 EXOSEAL 6Fr (EX600) opened to sterile field. 9:46:33 ACIST Syringe (25551) opened to sterile field. 9:46:33 Bag Decanter (2001S) opened to sterile field. 9:46:34 Medline Cath Pack ([id number]) opened to sterile field. 9:46:35 DIAGNOSTIC WIRE .035 260cm J wire (660884) opened to sterile field. 9:46:37 ACIST Hand Control (37970) opened to sterile field. 9:46:37 ACIST Manifold (93445) opened to sterile field. 9:46:38 Tegaderm 4 x 4 (1626W) opened to sterile field. 9:46:41 PERCUTANEOUS ENTRY 19GA needle opened to sterile field. 9:46:52 GUIDE 6FR XB 4.0 catheter ([id number]) opened to sterile field. 9:46:57 Physician arrived 9:46:57 --------ALL STOP TIME OUT------ 9:46:58 Final Timeout: patient, procedure, and site verified with staff and physician. All members of the team are in agreement. 9:46:59 Right groin site verified by team. 9:47:02 Physical assessment completed. ASA score P 2 - A patient with mild systemic disease as per Kevin Shafer MD. 9:47:06 Sedation plan: IV Moderate Sedation Medication:Versed, Fentanyl 9:47:14 Procedure started. 9:47:16 Local anesthetic to right femoral artery with Lidocaine 2% by Kevin Shafer MD.INITIAL ACCESS ONLY 9:47:17 Versed 1 mg I.V. was administered by Brad Zuniga RN; for sedation; 9:47:26 Fentanyl 50 mcg I.V. was administered by Brad Zuniga RN; for sedation; 9:47:28 A 6 Fr Short sheath was inserted into the Right Femoral artery 9:48:04 Lab Result : BUN 11 mg/dl 9:48:04 Lab Result : Creatinine 0.7 mg/dl 9:48:04 Lab Result : Hemoglobin 16.1 g/dl 9:48:04 Hemodynamic formulas in Rest were re-calculated based on hemoglobin value from 08/28/2017 8:15:00 AM 9:48:04 Lab Result : Hematocrit 45.6 % 9:48:32 Zero performed for pressure channel P1 9:48:35 Zero performed for pressure channel P1 9:48:42 Fentanyl 25 mcg I.V. was administered by Brad Zuniga RN; for sedation; 9:48:50 Versed 0.5 mg I.V. was administered by Brad Zuniga RN; for sedation; 9:49:09 6 Fr XB 4 guide catheter was inserted over the wire 9:50:08 CHOICE PT Extra Support 182cm wire ([id number]) opened to sterile field. 9:50:22 choice pt wire advanced. 9:50:39 Wire advanced across lesion. 9:50:40 Heparin Bolus 4000 units I.V. was administered by Brad Zuniga RN; for anticoagulation; 9:52:26 Inflation number: 1 A EUPHORA 2.0 x 15 Balloon ([id number]) was prepped and advanced across the 1st Ob Karin, then inflated to 13 CHARANJIT for 0:10 (min:sec). 9:53:21 Balloon removed over the wire. 9:53:57 Inflation Number: 2 A INTEGRITY RX 2.25 x 14 stent ([id number]) was prepped and advanced across the 1st Ob Karin. The stent was deployed at 9 CHARANJIT for 0:10 (min:sec). 9:54:59 Inflation number: 3 The stent balloon was then re-inflated across the 1st Ob Karin to 13 CHARANJIT for 0:10 (min:sec). 9:55:09 Inflation number: 4 The stent balloon was then re-inflated across the 1st Ob Karin to 1 CHARANJIT for 0:10 (min:sec). 9:55:41 Stent catheter was removed intact over wire. 9:55:41 Wire removed. 9:55:42 Guide catheter removed. 9:56:06 Sheath removed intact; hemostasis achieved with Exoseal to the Right Femoral artery. 9:56:08 Procedure ended.(Physican Out) 9:56:28 Fluoroscopy time 02.70 minutes. 9:56:33 Flurop Dose total: 319 9:56:33 Fluoroscopy dose: 319 mGy 9:56:36 Contrast amount:Isovue 300 53ml. 9:57:34 Sharps counted by scrub and verified by R.N. 9:57:37 Insertion/operative site no bleeding no hematoma. 9:57:39 Post-op/insertion site Right Femoral artery dressed using a 4 x 4 and Tegaderm. 9:57:43 Post right femoral artery:stable, soft, clean and dry 9:57:45 Post Procedure Pulses reassessed and unchanged 9:57:48 Post-procedure physical assessment completed. ASA score P 2 - A patient with mild systemic disease as per Kevin Shafer MD. 9:57:50 Post procedure rhythm: unchanged. 9:57:54 Estimated blood loss: 10 ml 9:57:55 Post procedure instruction explained to patient.Patient verbalizes understanding. 9:57:56 Patient needs reinforcement of post procedure teaching. 9:58:02 Versed 0.5 mg I.V. was administered by Brad Zuniga RN; for sedation; 9:58:08 Fentanyl 25 mcg I.V. was administered by Brad Zuniga RN; for sedation; 10:01:49 Procedure and supply charges have been captured, reviewed, submitted and are correct. 10:01:51 Procedure Complication : No complications 10:02:03 Vital chart was stopped 10:02:04 See physician's report for complete and final results. 10:02:06 Report given to Pre/Post Procedure Room. 10:02:08 Patient transfered to Pre/Post Procedure Room with Stretcher. 10:02:10 Procedure ended. 10:02:10 Full Disclosure recording stopped 10:02:26 End room use (Document Last) Intervention Summary Intervention Notes Time ActionType Lesion and Equipment Action# Pressure Duration Attributes Used 9:52:26 Inflate 1st Ob Karin EUPHORA 2.0 1 13 00:10 balloon x 15 Balloon ([id number]) 9:53:57 Place stent 1st Ob Karin INTEGRITY RX 2 9 00:10 2.25 x 14 stent ([id number]) 9:54:59 Reinflate 1st Ob Karin INTEGRITY RX 3 13 00:10 stent 2.25 x 14 balloon stent ([id number]) 9:55:09 Reinflate 1st Ob Karin INTEGRITY RX 4 1 00:10 stent 2.25 x 14 balloon stent ([id number]) Device Usage Item Name Manufacture Quantity Catalog Number Hospital Part Current Mini smallpox hospital Lot# / Charge Number Stock Stock Serial# Code SHEATH 6FR Terumo 1 [id number] 916342 810602 40 Ruby (KAY955) INFLATOR Merit 1 [id number] 501968 628490 443874 15 [facility] Medical BasixCompak (QU9302) EXOSEAL 6Fr Cardinal 1 EX600 398170 994664 107182 10 (EX600) Health ACIST Acist 1 97545 946437 924393 864432 20 Syringe Medical (08129) Systems Inc Bag Decanter Microtek 1 2001S 824642 25981 812145 5 (2001S) Medical Inc. Medline Cath Cardinal 1 [id number] 691061 74173 239280 5 Pack Health ([id number]) DIAGNOSTIC [facility] [place] 1 916301 089799 611081 906625 30 WIRE .035 260cm J wire (886667) ACIST Hand Acist 1 53897 054180 356271 291525 5 Control Medical (61071) Systems Inc ACIST Acist 1 87147 975323 443867 756490 5 Manifold Medical (14819) Systems Inc Tegaderm 4 x 3M 1 1626W 630733 891277 133448 5 4 (1626W) PERCUTANEOUS Cook Medical 1 [id number] 478628 052657 5 ENTRY 19GA needle GUIDE 6FR XB Cardinal 1 [id number] 791123 446630 125669 2 4.0 catheter [employer] (23694880) CHOICE PT [place] 1 [id number] 351160 164891 776867 5 Extra Scientific Support 182cm wire ([id number]) EUPHORA 2.0 Medtronic 1 [id number] 213952 506214 739242 5 [id number] x 15 Balloon (HRT0779S) INTEGRITY RX Medtronic 1 [id number] 863693 593460 135179 5 [id number] 2.25 x 14 stent ([id number]) Signature Audit [place] Stage Time Signature Unsigned Intra-Procedure 08/28/2017 Inder Packer 10:04:12 AM RT(R) Signatures Monitor : Inder Packer RT Signature : Date : Time : [facility] [address] [place] [address]
[2017-08-28 08:09] VITALS: BP 109/82; Ht 157.5 cm; Wt 77.3 kg
[2017-08-28 08:20] LABS: BASOPHILS 0.4 % (0-2); EOSINOPHILS 1.6 % (0-7); HEMATOCRIT 45.6 % (36.0-48.0); HEMOGLOBIN 16.1 g/dL (12-16); IMMATURE GRANULOCYTES 0.4 % (0-5); LYMPHOCYTES 39.9 % (15-50); MCH 32.4 pg (26.0-34.0); MCHC 35.3 g/dL (31.0-37.0); MCV 91.8 fL (80.0-100.0); MEAN PLATELET VOLUME 10.2 fL (7.4-10.4); NEUTROPHILS 50.7 % (40-80); PLATELET COUNT 222 10x3/uL (130-400); RBC 4.97 10x6/uL (4.00-5.40); RDW 12.7 % (11.5-14.5); WBC 5.2 10x3/uL (4.8-10.8)
[2017-08-28 08:30] LABS: CALC OSMOLALITY 281 mosm/kg (275-300); CALCIUM 9.2 mg/dL (8.5-10.1); CARBON DIOXIDE 27.7 mmol/L (21.0-32.0); CHLORIDE - SERUM 100 mmol/L (98-107); CREATININE - SERUM 0.7 mg/dL (0.6-1.3); GLUCOSE 260 mg/dL (74-106); POTASSIUM - SERUM 3.9 mmol/L (3.5-5.1); SODIUM 137 mmol/L (136-145); UREA NITROGEN 11 mg/dL (7-18); eGFR NON AFRICAN AMERICAN > 90 mL/min (90-120)
--- NOTE | 2017-08-28 10:15 | NUR ---
1015 RECIEVED TO ROOM VIA STRETCHER FROM DRY PLASTERER WITH REPORTS OF ONE STENT TO THE OM. 6 FR EXOSEAL R/GROIN CDI NO BLEEDING NO HEMATOMA NOTED.
--- NOTE | 2017-08-28 10:25 | NUR ---
RESTING QUIETLY WITH NO DISTRESS NOTED. R/GROIN CDI NO BLEEDING NO HEMATOMA NOTED.
--- NOTE | 2017-08-28 10:52 | NUR ---
1045 PT SLEEPING, AWAKENS EASILY TO VERBAL STIMULI. DENIES ANY C/O AT THIS TIME. DRESSING TO RIGHT GROIN IS CDI, AREA SOFT AND NONTENDER. PEDAL PULSES PALPABLE. PO FLUIDS SERVED. RR EVEN AND UNLABORED. CALL LIGHT IN REACH.
--- NOTE | 2017-08-28 11:04 | NUR ---
DRESSING RIGHT GROIN IS CDI, AREA SOFT AND NONTENDER. PEDAL PULSES PALPABLE. NSR, RATE OF 71. BP IS 122/84. RR EVEN AND UNLABORED, SAT IS 100%. CALL LIGHT IN REACH.
--- NOTE | 2017-08-28 11:24 | NUR ---
DRESSING RIGHT GROIN IS CDI, AREA SOFT AND NONTENDER. PEDAL PULSES PALPABLE. VSS. RR EVEN AND UNLABORED. CALL LIGHT IN REACH.
--- NOTE | 2017-08-28 12:00 | NUR ---
1200 PUDDING SERVED PER PT REQUEST. DRESSING TO RIGHT GROIN IS CDI, AREA IS SOFT AND NONTENDER. PEDAL PULSES PALPABLE. PT DENIES ANY NEEDS AT THIS TIME.
--- NOTE | 2017-08-28 12:15 | HP ---
PATIENT: BRIAN HERNANDEZ MEDICAL RECORD: [id number] ACCOUNT: [id number] LOCATION:[facility] : 65 ADMISSION DATE: 08/28/17 HISTORY AND PHYSICAL EXAMINATION ADMITTING DIAGNOSES: 1. Angina. 2. Coronary artery disease. 3. Recent percutaneous transluminal coronary angioplasty stent of the right coronary artery with concomitant disease of the left circumflex. 4. Hypertension. 5. Hyperlipidemia. HISTORY OF PRESENT ILLNESS: Ms. Hernandez presented last week with unstable angina, found to have disease of the RCA and left circumflex, underwent successful PTCA stent of the RCA. He is now brought back for PTCA stent of the circumflex. REVIEW OF SYSTEMS: The patient reports easy bruising but reports no swollen glands. The patient reports no fever, no night sweats, no significant weight gain, no significant weight loss. No significant exercise tolerance. The patient reports no dry eyes, no irritation, no vision change. Patient reports no difficulty hearing and no ear pain. Patient reports no frequent nose bleeds or nose and sinus problems. Patient reports on arm pain on exertion. No shortness of breath while lying down. No history of heart murmur. Patient reports no cough, no wheezing or coughing up blood. Patient reports no abdominal pain, no vomiting. Normal appetite. No diarrhea and not vomiting blood. No nausea and no constipation. Patient reports no incontinence. No difficulty urinating. No hematuria. No increased frequency. Patient reports no muscle aches. No weakness, no arthralgias, no back pain. No swelling of the extremities. Patient reports no abnormal mole, no jaundice, no rashes. Reports no loss of consciousness. No weakness and no numbness. No seizures, dizziness, or headaches. The patient reports no depression, no sleep disturbance, feeling safe in a relationship and no alcohol abuse. Patient reports on fatigue. Reports no runny nose or sinus pressure. No itching, no hives, and no frequent sneezing. PHYSICAL EXAMINATION: GENERAL APPEARANCE: Well-nourished, well-developed, appears stated age. Level of distress, comfortable. PSYCHIATRIC: Mental status, alert, normal affect. Orientation, oriented to time, place and person. EYES: Lids and conjunctiva, noninjected. No discharge, no pallor. ENT: Lips, teeth, gums, normal dentition. Oropharynx, no cyanosis, no pallor. NECK: Carotid arteries, bilateral normal upstroke, no bruits, no thrills. JUGULAR VEINS: No jugular venous pressure or distention. CERVICAL LYMPH NODES: Nontender, nonenlarged. THYROID: Not enlarged. Nontender. No nodules. LUNGS: Respiratory effort, unlabored. CHEST: Normal curvature. No thoracic deformity. No chest wall tenderness. Percussion, resonant. Auscultation, clear. No wheezes, no rales, no rhonchi. CARDIOVASCULAR: Precordial exam, nondisplaced. No heaves or pericardial thrills. Rate and rhythm, regular. Heart sounds, normal S1, normal S2. No S3, no gallop, no rub. Systolic murmur, not heard. Diastolic murmur, not heard. EXTREMITIES: No cyanosis, no edema. Peripheral pulses, full and equal in all HISTORY AND PHYSICAL [id number] BRIAN HERNANDEZ extremities, except as noted. No bruits appreciated. ABDOMEN: Soft, nondistended. Normal aorta. No bruit. Nontender. No masses. Liver, nontender, no hepatomegaly. Spleen, nontender, no splenomegaly. MUSCULOSKELETAL: No joint tenderness. No joint swelling. No erythema. NEUROLOGICAL: Normal gait, normal strength, normal tone. SKIN: Warm and dry. OVERALL IMPRESSION: Anginal symptomatology with significant disease of the circumflex. We will proceed with percutaneous transluminal coronary angioplasty stent of the circumflex. TRANSINT:[id number] Voice Confirmation ID: [id number] DOCUMENT ID: [id number] EMELY STAHL MD at 1215 CC: [id number] DICTATION DATE: 08/28/17941 WARP KNIT OPERATOR: 08/28/17 1026 [facility] [address] [place] [id number]
--- NOTE | 2017-08-28 12:17 | OP ---
PATIENT NAME: BRIAN BINGHAM MEDICAL RECORD: [id number] :65 LOCATION:D.CAT ADMISSION DATE: SURGEON: EMELY STAHL MD DATE OF OPERATION: 08/28/2017 PROCEDURES: 1. PTCA stent to left circumflex. 2. Selective coronary angiography. INDICATION: Angina and coronary artery disease. PROCEDURE IN DETAIL: After informed consent was obtained and after a detailed explanation of the risks, benefits as well as alternative therapies, the patient elected to proceed with angiogram and angioplasty. The right femoral area was prepped and draped in normal sterile fashion. The right femoral artery was cannulated via modified Seldinger technique with placement of 6-Japanese sheath. All catheters exchanged through this sheath. FINDINGS: The left circumflex has an obtuse marginal, takes off in a previously stented area of the circumflex. This was addressed with a 2.25 x 14 mm Integrity stent. Result was 0% residual stenosis. OVERALL IMPRESSION: Successful percutaneous transluminal coronary angioplasty stent of the left circumflex going from 90% initial stenosis to 0% residual. TRANSINT:[id number] Voice Confirmation ID: [id number] DOCUMENT ID: [id number] EMELY STAHL MD at 1217 CC: [id number] DICTATION DATE: 08/28/17 0959 VP TRAINING: 08/28/17 10[id number] [place] [address]
--- NOTE | 2017-08-28 13:00 | NUR ---
1300 DRESSING TO RIGHT GROIN IS CDI, AREA IS SOFT AND NONTENDER. PEDAL PULSES PALPABLE. PT DENIES ANY C/O. CALL LIGHT IN REACH.
--- NOTE | 2017-08-28 13:15 | NUR ---
1315 SANDWICH SERVED, PT DENIES ANY C/O.
--- NOTE | 2017-08-28 13:30 | NUR ---
1330 HOB ELEVATED. PT DENIES ANY C/O. DRESSING CDI, VSS.
--- NOTE | 2017-08-28 13:45 | NUR ---
1345 IV DC'D WITH CATH INTACT. DRESSING TO RIGHT GROIN IS CDI, AREA IS SOFT AND NONTENDER. PEDAL PULSES PALPABLE. PT DRESSING FOR DC TO HOME.
--- NOTE | 2017-08-28 14:17 | NUR ---
1400 PT HAS AMBULATED TO THE BATHROOM AND VOIDED QS. DENIES ANY C/O. DC INSTRUCTIONS REVIEWED WITH PT WHO VERBALIZES UNDERSTANDING. PT ESCORTED TO PRIVATE AUTO VIA WC BY NURSE WITH BOYFRIEND DRIVING HER HOME.
== END | disposition home or self-care (01) ==
LOC: D.CATH 07:45
PROVIDERS: Internal Medicine Interventional Cardiology
DX: I25.119 Atherosclerotic heart disease of native coronary artery with unspecified angina pectoris (principal); I10 Essential (primary) hypertension; E78.5 Hyperlipidemia, unspecified; Z95.5 Presence of coronary angioplasty implant and graft; Z01.812 Encounter for preprocedural laboratory examination

== ENCOUNTER 2017-10-08 19:04 | Emergency (ER) | payer MEDICARE, MEDICAID ==
[2017-08-28 08:09] VITALS: BMI 31.1
== END 2017-10-08 21:00 | disposition home or self-care (01) ==
LOC: D.ER 19:04
DX: G43.909 Migraine, unspecified, not intractable, without status migrainosus (principal)

== ENCOUNTER 2018-12-12 20:17 | Observation (INO) | payer MEDICARE, MEDICAID ==
[~2018-12-12] VITALS: Ht 157.5 cm; Wt 72.6 kg
--- NOTE | ~2018-12-12 | OP ---
PATIENT NAME: BRIAN BINGHAM MEDICAL RECORD: [id number] :65 LOCATION:[place] [facility] ADMISSION DATE:12/12/18 SURGEON: EMELY STAHL MD DATE OF OPERATION: 12/13/2018 PROCEDURES: 1. PTCA stent RCA. 2. Left heart catheterization. 3. Selective coronary angiography. 4. Left ventriculogram. INDICATION: Unstable angina and coronary artery disease. PROCEDURE IN DETAIL: After informed consent was obtained and after a detailed description of risks, benefits as well as alternative therapies, the patient elected to proceed with angiogram and angioplasty. The right femoral area was prepped and draped in normal sterile fashion. Right femoral artery was cannulated via modified Seldinger technique with placement of 6-Norwegian sheath. All catheters exchanged through this sheath. FINDINGS: Left ventriculogram was performed in standard 30-degree ZUÑIGA view, reveals good cardiac wall motion, ejection fraction is 60%. SELECTIVE CORONARY ANGIOGRAPHY: 1. Left main is with no significant angiographic disease. 2. Left anterior descending has mild irregularities, but no flow-limiting stenosis. 3. The left circumflex has previously placed stents. The circumflex itself is widely patent. There is 50-70% in-stent restenosis of the first obtuse marginal, but this is a very small vessel. 4. The right coronary is large, dominant vessel with previously placed stents with at least 70% in-stent restenosis proximally. PTCA STENT OF THE RIGHT CORONARY: The stent used was 3.5 x 15 mm [place]. Result was 0% residual stenosis. OVERALL IMPRESSION: Successful PTCA stent of the RCA for greater than 70% in-stent restenosis to 0% residual stenosis. TRANSINT:[id number] Voice Confirmation ID: [id number] DOCUMENT ID: [id number] EMELY STAHL MD CC: [id number] DICTATION DATE: 12/13/18 1535 SPECIAL EDUCATION TUTOR: 12/14/18 0002 DIS IN 12/13/18 [address] [place] [address]
--- NOTE | ~2018-12-12 | DS ---
PATIENT:BRIAN HERNANDEZ :65 MEDICAL RECORD: [id number] DISCHARGE SUMMARY ADMISSION DATE: 12/12/18 DISCHARGE DATE: 12/13/18 DISCHARGE DIAGNOSES: 1. Angina. 2. Coronary artery disease. 3. Percutaneous transluminal coronary angioplasty and stent to the right coronary artery this admission. 4. Hypertension. 5. Hyperlipidemia. HOSPITAL COURSE: Ms. Hernandez presents with unstable anginal symptomatology, found to have significant disease of the RCA, underwent successful PTCA and stent of this territory, was discharged home with the addition of aspirin and Plavix to her medical regimen. Will follow up with [facility] in 1 month. TRANSINT:[id number] Voice Confirmation ID: [id number] DOCUMENT ID: [id number] EMELY STAHL MD CC: [id number] DICTATION DATE: 12/13/18 1536 SLEEP TECHNOLOGIST: 12/14/18 0453 DIS IN 12/13/18 [facility] [id number]
--- NOTE | ~2018-12-12 | HEMODYNAMI ---
PATIENT:BRIAN BINGHAM MEDICAL RECORD: [id number] : 65 LOCATION:D. D.2107 ADMISSION DATE: 12/12/18 Generatedon:12/13/201815:35 Patient name: BRIAN BINGHAM Patient #: [id number] SSN: : 1965 Date of study: 12/13/2018 Page: Of Hemodynamic Procedure Report Patient Data Patient Demographics Procedure consent was obtained First Name: BRIAN Gender: Female Last Name: ZACHERY : 1965 [facility] Initial: BIBI Age: 53 year(s) Patient #: [id number] Race: Additional ID: [id number] Contact details Address: [address] [place] [address] State: [place] [facility] [place]: [address] Past Medical History History of disease Date Diagnosis Comments CAD Allergies: No known allergies Admission Admission Data Admission Date: 12/12/2018 Admission Time: 21:45 Admit Source: Other Room #: D.2107 Procedure Procedure Types Cath Procedure Diagnostic Procedure [facility] w/Coronaries PCI Procedure Coronary Stent Coronary Stent Initial Procedure Description Procedure Date Procedure Date: 12/13/2018 Procedure Start Time: 15:19 Procedure End Time: 15:34 Procedure Staff Name Function Kevin Shafer MD Performing Physician Cheryl Amaral RT Monitor Inder Packer RT Scrub Bridget Juarez RN Nurse Procedure Data Cath Procedure Fluoroscopy Diagnostic fluoroscopy Total fluoroscopy Time: 2 time: 2 min min Diagnostic fluoroscopy Total fluoroscopy dose: 347 dose: 347 mGy mGy Contrast Material Contrast Material Type Amount (ml) Isovue 300 56 Entry Location Entry Primary Successful Side Size Upsize Upsize Entry Closure Succes sful Closure Location (Fr) 1 (Fr) 2 (Fr) Remarks Device Remarks Femoral Right 5 Fr 6 Fr Exoseal artery Short Estimated blood loss: 10 ml Diagnostic catheters Device Type Used For End Catheter Placement MULTIPACK Pigtail 5 Fr Procedure catheter MULTIPACK JL 4.0 5Fr Procedure catheter MULTIPACK 3DRC 5Fr Procedure catheter Procedure Complications No complications Procedure Medications Medication Administration Route Dosage 0.9% NaCl I.V. 100 ml/hr Oxygen etCO2 Nasal cannula 2 l/min Lidocaine 2% added to field 20 Heparin Flush Bag added to field 2 bags (1000units/500ml NS) Versed I.V. 2 mg Fentanyl I.V. 50 mcg Heparin Bolus I.V. 4000 units Versed I.V. 2 mg Fentanyl I.V. 50 mcg Plavix P.O. 75 mg Hemodynamics Rest Heart Rate: 68 (bpm) Pressure Samples Time Site Value (mmHg) Purpose Heart Use Rate(bpm) 15:21 LV 43/9,11 Snapshot 60 Snapshots Pre Cath Intra NCS Post Cath Vital Signs Time Heart Resp SPO2 etCO2 NIBP (mmHg) Rhythm Pain Sedation Rate (ipm) (%) (mmHg) Status Level (bpm) 15:07:03 54 13 100 37 124/76(92) SB 0 (11) 10(A) , No pain 15:11:14 54 12 100 38.9 129/75(112) SB 0 (11) 10(A) , No pain 15:15:28 55 14 98 25.4 117/73(94) SB 0 (11) 10(A) , No pain 15:19:40 56 13 99 40.4 105/64(92) SB 0 (11) 10(A) , No pain 15:23:44 72 15 98 41.1 115/75(96) NSR 0 (11) 9(A) , No pain 15:27:52 72 12 97 42.6 127/75(108) NSR 0 (11) 9(A) , No pain 15:32:02 70 14 100 39.6 110/72(88) NSR 0 (11) 10(A) , No pain Medications Time Medication Route Dose Verified Delivered Reason Notes Effectiveness by by 15:06:03 0.9% NaCl I.V. 100 Kevin Bridget used for ml/hr Hollis Juarez examiner of currency 15:06:09 Oxygen etCO2 2 Kevin Bridget used for Nasal l/min Hollis Juarez procedure cannula RN 15:06:16 Lidocaine 2% added 20ml Kevin Brown for local to vial Hollis Shafer MD anesthetic field 15:06:21 Heparin Flush added 2 Kevin Kevin used for Bag to bags Hollis Shafer MD procedure (1000units/500ml field NS) 15:18:28 Versed I.V. 2 mg Kevin Bridget for sedation Hollis Juarez RN 15:18:34 Fentanyl I.V. 50 Kevin Bridget for sedation mcg Hollis Juarez RN 15:23:15 Versed I.V. 2 mg Kevin Bridget for sedation Hollis Juarez RN 15:23:24 Fentanyl I.V. 50 Kevin Bridget for sedation mcg Hollis Juarez RN 15:25:58 Heparin Bolus I.V. 4000 Kevin Bridget for verif ied units Hollis Juarez anticoagulation with Dr. GUERO Shafer 15:28:29 Plavix P.O. 75 mg Kevin Quintanayla for Hollis Juarez antiplatelet RN therapy Procedure Log Time Note 14:40:54 Inder Joséer RT(R) sent for patient. Start room use. 14:44:23 Informed consent obtained and on chart 14:44:25 Admit Source: Other 14:44:38 Diagnostic Cath status Elective 14:44:39 Time tracking: Regular hours (M-F 7:00 - 5:00) 14:44:44 Plan of Care:Hemodynamics will remain stable., Cardiac rhythm will remain stable., Comfort level will be maintained., Respiratory function will remain adequate., Patient/ family verbilizes understanding of procedure., Procedure tolerated without complication., Recovers from procedure without complications.. 14:56:59 Patient received from Med II to CCL 1 Alert and oriented. Tansferred to table in Supine position. 14:57:04 Warm blankets applied, and kike hugger turned on for patient comfort. 14:57:05 Correct patient and procedure confirmed by team. 14:57:06 ECG and BP/O2 sat monitors applied to patient. 15:05:53 Vital chart was started 15:06:03 0.9% NaCl 100 ml/hr I.V. was administered by Bridget Juarez RN; used for procedure; 15:06:08 Baseline sample Acquired. 15:06:09 Oxygen 2 l/min etCO2 Nasal cannula was administered by Bridget Juarez RN; used for procedure; 15:06:11 Rhythm: sinus rhythm 15:06:13 Full Disclosure recording started 15:06:16 Lidocaine 2% 20ml vial added to field was administered by Kevin Shafer MD; for local anesthetic; 15:06:21 Heparin Flush Bag (1000units/500ml NS) 2 bags added to field was administered by Kevin Shafer MD; used for procedure; 15:06:26 H&P Date Dictated: 12/12/2018 Within 30 days and on chart.. 15:06:28 Pre-procedure instructions explained to patient. 15:06:28 Pre-op teaching completed and patient verbalized understanding. 15:06:30 Family unavailable. 15:06:32 Patient NPO since Midnight. 15:06:37 Patient allergic to No known allergies 15:06:39 Is the patient allergic to Iodine/contrast media? No. 15:06:41 Is patient on blood thinner?Yes 15:06:43 ACC The patient was administered the following blood thiners within the last 24 hours: ACCPlavix 15:06:45 Patient diabetic? Yes. 15:06:49 Previous problem with sedation/anesthesia? No ? 15:06:56 If diabetic: On Metformin? No 15:06:57 Snore? Yes 15:06:59 Sleep apnea? No 15:07:01 Deviated septum? No 15:07:01 Opens mouth fully? Yes 15:07:02 Sticks out tongue? Yes 15:07:04 Airway obstruction? No ? 15:07:08 Dentures? Yes out 15:07:30 Pre procedure: right dorsailis pedis pulse 2+ Normal; easily identifiable; not easily obliterated 15:07:36 IV patent on arrival in left forearm with 0.9% NaCl at [facility]. 15:09:31 Lab Result : BUN 19 mg/dl 15:09:31 Lab Result : Creatinine 0.9 mg/dl 15:09:31 Lab Result : Hematocrit 43.6 % 15:09:31 Lab Result : Hemoglobin 15.3 g/dl 15:09:34 Lab results completed and on chart. 15:09:37 Right groin area was prepped with chlora-prep and draped in sterile fashion 15:09:38 Alarms reviewed by R. N. 15:09:38 Sharps counted by scrub and verified by R.N. 15:09:40 Use device set Femoral Dx 15:09:41 ACIST Syringe (10777) opened to sterile field. 15:09:41 Bag Decanter (2002S) opened to sterile field. 15:09:42 Medline Cath Pack ([id number]) opened to sterile field. 15:09:43 ACIST Hand Control (95489) opened to sterile field. 15:09:43 ACIST Manifold (08436) opened to sterile field. 15:09:44 Tegaderm 4 x 4 (1626W) opened to sterile field. 15:09:45 SHEATH 5FR [place] (DVM756) opened to sterile field. 15:09:47 DIAGNOSTIC WIRE .035 260cm J wire (967654) opened to sterile field. 15:09:47 DIAGNOSTIC Multipack 5Fr catheter set ([id number]) opened to sterile field. 15:12:20 Physician paged 15:17:31 Physician arrived 15:17:31 --------ALL STOP TIME OUT------ 15:17:31 Final Timeout: patient, procedure, and site verified with staff and physician. All members of the team are in agreement. 15:17:33 Right groin site verified by team. 15:17:40 Maximum allowable Isovue 300 dose 300ml. Physician notified. (300ml for normal creatinines. For patients with creatinine of 1.7 or higher multiply weight(kg) x 5 divided by creatinine.) 15:17:44 Fire Safety Assessment: A--An alcohol-based skin anteseptic being used preoperatively., C--Open oxygen or nitrous oxide is being used., D--An ESU, laser, or fiber-optic light is being used. 15:17:49 Physical assessment completed. ASA score P 2 - A patient with mild systemic disease as per Kevin Shafer MD. 15:17:52 Sedation plan: IV Moderate Sedation Medication:Versed, Fentanyl 15:18:28 Versed 2 mg I.V. was administered by Bridget Juarez RN; for sedation; 15:18:34 Fentanyl 50 mcg I.V. was administered by Bridget Juarez RN; for sedation; 15:19:29 Local anesthetic to right femoral artery with Lidocaine 2% by Kevin Shafer MD.INITIAL ACCESS ONLY 15:20:37 A 5 Fr sheath was inserted into the Right Femoral artery 15:20:47 A MULTIPACK Pigtail 5 Fr catheter was advanced over the wire and used for Procedure. 15:21:12 LV gram done using ZUÑIGA 15:21:14 Injector settings: Ml/sec: 10, Volume: 20, 15:21:17 LV hemodynamics recorded. 15:21:24 EF : 60 % 15:21:31 Catheter exchanged over wire. 15:21:35 A MULTIPACK JL 4.0 5Fr catheter was advanced over the wire and used for Procedure. 15:22:44 LCA angiography performed. 15:22:45 Catheter exchanged over wire. 15:22:51 A MULTIPACK 3DRC 5Fr catheter was advanced over the wire and used for Procedure. 15:23:15 Versed 2 mg I.V. was administered by Bridget Juarez RN; for sedation; 15:23:24 Fentanyl 50 mcg I.V. was administered by Bridget Juarez RN; for sedation; 15::40 RCA angiography performed. 15::53 Catheter removed. 15:24:06 CHOICE PT Extra Support 182cm wire ([id number]) opened to sterile field. 15:24:07 INFLATOR Merit BasixCompak (BZ3957) opened to sterile field. 15:24:07 SHEATH 6FR [place] (JCO360) opened to sterile field. 15:25:03 GUIDE 6FR 3DRC SH catheter ([id number]) opened to sterile field. 15:25:25 Sheath upsized to a 6 Fr Short. 15:25:58 Heparin Bolus 4000 units I.V. was administered by Bridget Juarez RN; for anticoagulation; verified with Dr. Shafer 15:26:25 6 Fr 3DRC SH guide catheter was inserted over the wire 15:26:31 CHOICE PT ES wire advanced. 15:26:32 Wire advanced across lesion. 15:26:48 Place stent Inflation Number: 1 A MARIANA RX 3.5 x 15 stent ([id number]) was prepped and advanced across the Prox RCA. The stent was deployed at 17 CHARANJIT for 0:10 (min:sec). 15:27:02 Inflation number: 2 The stent balloon was then re-inflated across the Prox RCA to 17 HCARANJIT for 0:10 (min:sec). 15:27:32 Stent catheter was removed intact over wire. 15:27:33 Wire removed. 15:27:33 Guide catheter removed. 15:27:39 EXOSEAL 6Fr (EX600) opened to sterile field. 15:27:46 Sheath removed intact; hemostasis achieved with Exoseal to the Right Femoral artery. 15::47 Procedure ended.(Physican Out) 15:28:29 Plavix 75 mg P.O. was administered by Bridget Juarez RN; for antiplatelet therapy; 15::38 Fluoroscopy time 02.00 minutes. 15::46 Fluoroscopy dose: 347 mGy 15::46 Flurop Dose total: 347 15:30:49 Contrast amount:Isovue 300 56ml. 15:30:51 Sharps counted by scrub and verified by R.N. 15::53 Insertion/operative site no bleeding no hematoma. 15:30:55 Post-op/insertion site Right Femoral artery dressed using a 4 x 4 and Tegaderm. 15:30:59 Post right femoral artery:stable, soft, clean and dry 15:33:34 Post Procedure Pulses reassessed and unchanged 15:33:37 Post-procedure physical assessment completed. ASA score P 2 - A patient with mild systemic disease as per Kevin Shafer MD. 15:33:38 Post procedure rhythm: unchanged. 15:33:41 Estimated blood loss: 10 ml 15:33:44 Post procedure instruction explained to patient.Patient verbalizes understanding. 15:33:44 Patient needs reinforcement of post procedure teaching. 15:34:23 Procedure type changed to Cath procedure, Diagnostic procedure, LHC, LHC w/Coronaries, PCI procedure, Coronary Stent, Coronary Stent Initial 15:34:42 Procedure and supply charges have been captured, reviewed, submitted and are correct. 15:34:44 Procedure Complication : No complications 15::46 Vital chart was stopped 15::47 See physician's report for complete and final results. 15:34:48 Report given to Pre/Post Procedure Room. 15:34:51 Patient transfered to Pre/Post Procedure Room with Stretcher. 15:34:53 Procedure ended. 15:34:53 Full Disclosure recording stopped 15:34:56 End room use (Document Last) Intervention Summary Intervention Notes Time ActionType Lesion and Equipment Used Action# Pressure Duration Attributes 15:26:[address] stent Prox RCA MARIANA RX 3.5 x 1 17 00:10 15 stent ([id number]) 15:27:02 Reinflate Prox RCA MARIANA RX 3.5 x 2 17 00:10 stent 15 stent balloon ([id number]) Device Usage Item Name Manufacture Quantity Catalog Number Hospital Part Current M inimal Lot# / Charge Number Stock Stock Serial# Code ACIST Syringe Acist 1 08355 113818 410613 207963 2 0 (19882) Medical Systems Inc Bag Decanter Microtek 1 2001S 048023 61542 481083 5 () Medical Inc. Medline Cath Medline 1 [id number] 110098 34573 244031 5 Pack ([id number]) ACIST Hand Acist 1 25160 709743 181429 673892 5 Control Medical (82875) Systems Inc ACIST Manifold Acist 1 44047 091263 858233 723748 5 (10864) Medical Systems Inc Tegaderm 4 x 4 3M 1 1626W 595197 161804 911454 5 (1626W) SHEATH 5FR Terumo 1 YTW225 733849 681813 565409 5 [place] (GBN152) DIAGNOSTIC [place] 1 984417 041639 746620 840895 3 0 WIRE .035 260cm J wire (602377) DIAGNOSTIC Cardinal 1 XF0921 562809 48486 376243 3 0 Multipack 5Fr Health catheter set (QV3054) MULTIPACK Cardinal 1 093760 5 Pigtail 5 Fr Health catheter MULTIPACK JL Cardinal 1 660139 5 4.0 5Fr Health catheter MULTIPACK 3DRC Cardinal 1 350358 5 5Fr catheter Health CHOICE PT [place] 1 [id number] 490058 042391 304028 5 Extra Support Scientific 182cm wire ([id number]) INFLATOR Merit Merit 1 YB6955 173451 432544 380373 1 5 TVTY Medical (QA9037) SHEATH 6FR Terumo 1 MKL778 652608 326472 734506 4 0 [place] (GMR228) GUIDE 6FR 3DRC Medtronic 1 [id number] 851664 291951 528170 1 SH catheter ([id number]) MARIANA RX 3.5 x Medtronic 1 [id number] 918959 4146885 219721 5 [id number] 15 stent ([id number]) EXOSEAL 6Fr Cardinal 1 EX600 057170 023373 915310 1 0 (EX600) Health Signature Audit [place] Stage Time Signature Unsigned Intra-Procedure 12/13/2018 Inder Packer 3:35:34 PM RT(R) Signatures Monitor : Cheryl Amaral Signature : RT Date : Time : [address] [place] [address]
[2018-12-12 20:50] VITALS: BP 122/78
[2018-12-12 20:58] LABS: BASOPHILS 0.5 % (0-2); EOSINOPHILS 0.8 % (0-7); HEMATOCRIT 43.6 % (36.0-48.0); HEMOGLOBIN 15.3 g/dL (12-16); IMMATURE GRANULOCYTES 0.7 % (0-5); LYMPHOCYTES 47.5 % (15-50); MCH 31.4 pg (26.0-34.0); MCHC 35.1 g/dL (31.0-37.0); MCV 89.3 fL (80.0-100.0); MEAN PLATELET VOLUME 11.6 fL (7.4-10.4); NEUTROPHILS 44.5 % (40-80); RBC 4.88 10x6/uL (4.00-5.40); RDW 12.6 % (11.5-14.5)
[2018-12-12 21:00] LABS: PLATELET COUNT 140 10x3/uL (130-400)
[2018-12-12 21:07] LABS: APTT 26.2 SECONDS (22.8-39.4); INR 0.88 (0.85-1.17); PROTIME 11.5 SECONDS (11.6-15.0)
[2018-12-12 21:08] LABS: ALBUMIN 3.6 g/dL (3.4-5.0); ALKALINE PHOSPHATASE 82 U/L (46-116); ALT (SGPT) 36 U/L (10-68); BILIRUBIN - TOTAL 0.35 mg/dL (0.2-1.3); CALC OSMOLALITY 288 mosm/kg (275-300); CALCIUM 9.1 mg/dL (8.5-10.1); CARBON DIOXIDE 24.7 mmol/L (21.0-32.0); CHLORIDE - SERUM 100 mmol/L (98-107); CKMB 0.9 U/L (0.0-3.6); CREATINE KINASE 37 UL (21-215); CREATININE - SERUM 0.9 mg/dL (0.6-1.3); GLUCOSE 305 mg/dL (74-106); MAGNESIUM - SERUM 1.8 mg/dL (1.8-2.4); POTASSIUM - SERUM 3.8 mmol/L (3.5-5.1); PROTEIN - SERUM 7.5 g/dL (6.4-8.2); SODIUM 138 mmol/L (136-145); UREA NITROGEN 19 mg/dL (7-18); eGFR NON AFRICAN AMERICAN 69 mL/min (90-120)
[2018-12-12 21:09] LABS: TROPONIN-I < 0.017 ng/mL (0.000-0.060)
--- NOTE | 2018-12-12 21:56 | NUR ---
PT AMBULATED TO RESTROOM INDEPENDENTLY.
--- NOTE | 2018-12-12 22:10 | NUR ---
THE PATIENT WAS RECEIVED FROM THE ED. BED IS IN THE LOW POSITION WITH SIDERAILS X2 AND CALL LIGHT WITHIN REACH. THE PATIENT WAS EDUCATED ON THE NEED TO CALL FOR STAFF BEFORE THEY GET OUT OF BED, AND HOW TO USE A CALL LIGHT. THE PATIENT DEMONSTRATED UNDERSTANDING VIA TEACHBACK METHOD. PATIENT ALSO UNDERSTANDS THAT SHE IS NPO. THE PATIENT APPEARS COMFORTABLE WITH NO QUESTIONS OR CONCERNS AT THIS TIME.
[2018-12-12 22:38] VITALS: BP 104/57
--- NOTE | 2018-12-13 03:30 | NUR ---
PATIENT IS AWAKE AND TALKING TO STAFF. SHE APPEARS COMFORTABLE WITH NO QUESTIONS OR CONCERNS AT THIS TIME. PATIENT UNDERSTANDS THAT SHE IS NPO.
[2018-12-13 04:00] VITALS: BP 113/63
[2018-12-13 10:15] VITALS: BP 112/73
[2018-12-13 12:42] VITALS: Ht 157.5 cm; Wt 72.6 kg
[2018-12-13 14:04] LABS: HEMATOCRIT 41.2 % (36.0-48.0); HEMOGLOBIN 14.3 g/dL (12-16); LYMPHOCYTES 42.2 % (15-50); MCH 30.7 pg (26.0-34.0); MCHC 34.7 g/dL (31.0-37.0); MCV 88.4 fL (80.0-100.0); MEAN PLATELET VOLUME 9.8 fL (7.4-10.4); NEUTROPHILS 46.2 % (40-80); PLATELET COUNT 187 10x3/uL (130-400); RBC 4.66 10x6/uL (4.00-5.40); RDW 12.8 % (11.5-14.5); WBC 3.7 10x3/uL (4.8-10.8)
--- NOTE | 2018-12-13 14:17 | NUR ---
PATIENT IS STABLE AND VSS. RECIEVED CALL FROM VISITOR SERVICES COORDINATOR TEAM TO GIVE PATIENT PREOP MEDS. PREOP MEDS GIVEN PER MAR ORDERS. WILL CONTINUE TO MONITOR.
[2018-12-13 14:21] LABS: CALCIUM 8.7 mg/dL (8.5-10.1); CARBON DIOXIDE 28.8 mmol/L (21.0-32.0); CHLORIDE - SERUM 101 mmol/L (98-107); SODIUM 136 mmol/L (136-145)
[2018-12-13 14:24] LABS: CALC OSMOLALITY 274 mosm/kg (275-300); CREATININE - SERUM 0.5 mg/dL (0.6-1.3); GLUCOSE 161 mg/dL (74-106); UREA NITROGEN 13 mg/dL (7-18); eGFR NON AFRICAN AMERICAN > 90 mL/min (90-120)
--- NOTE | 2018-12-13 14:50 | NUR ---
PATIENT IS STABLE AND VSS. PATIENT TO PATIENT RESOURCE COORDINATOR VIA BED AND PATIENT RESOURCE COORDINATOR TEAM.
--- NOTE | 2018-12-13 15:03 | HP ---
PATIENT: BRIAN HERNANDEZ MEDICAL RECORD: [id number] ACCOUNT: [id number] LOCATION:[facility] D.2107 : 65 ADMISSION DATE: 12/12/18 PCP: LUKE SCHROEDER MD HISTORY AND PHYSICAL EXAMINATION DIAGNOSES 1. Unstable angina. 2. Coronary artery disease. 3. Previous percutaneous transluminal coronary angioplasty stent. 4. Hypertension. 5. Hyperlipidemia. 6. Noninsulin-dependent diabetes. HISTORY OF PRESENT ILLNESS: Mrs. Hernandez presents with 3 days of increasing episodes of chest discomfort compatible with her angina. Her last cardiac stent was 2 years ago. Her EKG is with nonspecific ST-T abnormalities. She continues to have episodes of chest pain today. PHYSICAL EXAMINATION: GENERAL APPEARANCE: Well-nourished, well-developed, appears stated age. Level of distress, comfortable. PSYCHIATRIC: Mental status, alert, normal affect. Orientation, oriented to time, place and person. EYES: Lids and conjunctiva, noninjected. No discharge, no pallor. ENT: Lips, teeth, gums, normal dentition. Oropharynx, no cyanosis, no pallor. NECK: Carotid arteries, bilateral normal upstroke, no bruits, no thrills. JUGULAR VEINS: No jugular venous pressure or distention. CERVICAL LYMPH NODES: Nontender, nonenlarged. THYROID: Not enlarged. Nontender. No nodules. LUNGS: Respiratory effort, unlabored. CHEST: Normal curvature. No thoracic deformity. No chest wall tenderness. Percussion, resonant. Auscultation, clear. No wheezes, no rales, no rhonchi. CARDIOVASCULAR: Precordial exam, nondisplaced. No heaves or pericardial thrills. Rate and rhythm, regular. Heart sounds, normal S1, normal S2. No S3, no gallop, no rub. Systolic murmur, not heard. Diastolic murmur, not heard. EXTREMITIES: No cyanosis, no edema. Peripheral pulses, full and equal in all extremities, except as noted. No bruits appreciated. ABDOMEN: Soft, nondistended. Normal aorta. No bruit. Nontender. No masses. Liver, nontender, no hepatomegaly. Spleen, nontender, no splenomegaly. MUSCULOSKELETAL: No joint tenderness. No joint swelling. No erythema. NEUROLOGICAL: Normal gait, normal strength, normal tone. SKIN: Warm and dry. OVERALL IMPRESSION: Angina in an unstable fashion in a patient with multiple risk factors and a history of coronary artery disease. We will proceed with coronary angiography. Further care depends upon the findings of the angiography. TRANSINT:[id number] Voice Confirmation ID: [id number] DOCUMENT ID: [id number] HISTORY AND PHYSICAL [id number] BRIAN HERNANDEZ JEFFREY MD at 1503 CC: [id number] DICTATION DATE: 12/13/18 08 SHOW DOG TRAINER: 12/13/18 0842 ADM IN [place] [id number] [place] [address]
--- NOTE | 2018-12-13 16:00 | NUR ---
PATIENT AWAKE, GIVEN WATER AND SANDWICH PER REQUEST. VSS ON ROOM AIR. RIGHT GROIN DRESSING IS CDI, NO S/S OF BLEEDING OR HEMATOMA. NO C/O PAIN, NUMBNESS, OR TINGLING. CALLED SIGNIFICANT OTHER PER REQUEST OF PATIENT AND MADE HIM AWARE OF DISCHARGE TIME.
--- NOTE | 2018-12-13 16:30 | NUR ---
PATIENT AWAKE, VSS ON ROOM AIR. RIGHT GROIN DRESSING IS CDI, NO S/S OF BLEEDING OR HEMATOMA. NO C/O PAIN, NUMBNESS, OR TINGLING. NO N/V.
--- NOTE | 2018-12-13 17:00 | NUR ---
PATIENT AWAKE, VSS ON ROOM AIR. RIGHT GROIN DRESSING IS CDI, NO S/S OF BLEEDING OR HEMATOMA.
--- NOTE | 2018-12-13 17:30 | NUR ---
ASSISTED PATIENT WITH BEDPAN, PATIENT ATTEMPTED TO VOID WITHOUT SUCCESS. STATES THAT SHE "IS ABOUT TO BUST". WILL ATTEMPT AGAIN IN TEN MINUTES. VSS ON ROOM AIR. RIGHT GROIN DRESSING IS CDI, NO S/S OF BLEEDING OR HEMATOMA.
--- NOTE | 2018-12-13 17:45 | NUR ---
PATIENT ATTEMPTED TO VOID AGAIN WITH NO SUCCESS. SPOKE WITH PHYSICIAN WHO GAVE ORDER TO STRAIGHT CATH NEEDED FOR URINARY RETENTION.
--- NOTE | 2018-12-13 18:00 | NUR ---
STRAIGHT CATHED PATIENT WITH 500CC OF CLEAR YELLOW URINE. VSS ON ROOM AIR. RIGHT GROIN DRESSING IS CDI, NO S/S OF BLEEDING OR HEMATOMA. NO C/O PAIN, NUMBNESS, OR TINGLING. NO N/V. SPOKE WITH FAMILY MEMBER TO CONFIRM ROPE TIER TIME AND LOCATION.
--- NOTE | 2018-12-13 18:30 | NUR ---
PATIENT AWAKE, HEAD OF BED ELEVATED TO 30 DEGREES. RIGHT GROIN DRESSING IS CDI, NO S/S OF BLEEDING OR HEMATOMA. PATIENT DRINKING COFFEE, NO N/V. VSS ON ROOM AIR.
--- NOTE | 2018-12-13 19:00 | NUR ---
PATIENT AWAKE, VSS ON ROOM AIR. HEAD OF BED AT 90 DEGREES, RIGHT GROIN DRESSING IS CDI, NO S/S OF BLEEDING OF HEMATOMA.
--- NOTE | 2018-12-13 19:10 | NUR ---
IV REMOVED. EDUCATION REGARDING DISCHARGE INSTRUCTIONS AND MEDICATION COMPLIANCE GIVEN TO PATIENT, PATIENT VOICES UNDERSTANDING. VSS ON ROOM AIR. RIGHT GROIN DRESSING IS CDI, NO S/S OF BLEEDING OR HEMATOMA.
--- NOTE | 2018-12-13 19:15 | NUR ---
PATIENT TRANSPORTED VIA WHEELCHAIR TO CAR WITH FAMILY DRIVING, ALL BELONGINGS WITH PATIENT.
== END 2018-12-13 19:15 | disposition home or self-care (01) ==
LOC: D.ER 20:17 → D.M2 21:45 → D.EDHOLD 21:45 → OBSVTIME 21:45 → D.M2 22:07 → D.CLR 12-13 15:46
PROVIDERS: Emergency Medicine; ADMIT Internal Medicine Interventional Cardiology; ATTEND Internal Medicine Interventional Cardiology
DX: I25.110 Atherosclerotic heart disease of native coronary artery with unstable angina pectoris (principal); I10 Essential (primary) hypertension; E78.5 Hyperlipidemia, unspecified; E11.9 Type 2 diabetes mellitus without complications; T82.855A Stenosis of coronary artery stent, initial encounter; Y83.8 Other surgical procedures as the cause of abnormal reaction of the patient, or of later complication, without mention of misadventure at the time of the procedure
CPT/HCPCS: 93458; C9600

== ENCOUNTER 2019-06-09 16:03 | Emergency (ER) | payer MEDICARE, MEDICAID ==
[~2019-06-09] VITALS: Ht 157.5 cm; Wt 76.4 kg
[2019-06-09 16:42] VITALS: BP 134/80; Ht 157.5 cm; Wt 76.4 kg
[2019-06-09] MEDS ORDERED: HYDROCODON-ACE1 EAC7 PO (18:08)
[2019-06-09] MEDS ORDERED: CLEOCIN HCL300 MG PO (18:08)
== END 2019-06-09 18:40 | disposition home or self-care (01) ==
LOC: D.ER 16:03
DX: L02.214 Cutaneous abscess of groin (principal)

== ENCOUNTER 2019-10-12 18:02 | Emergency (ER) | payer MEDICARE, MEDICAID ==
[~2019-10-12] VITALS: Ht 157.5 cm; Wt 76.4 kg
[~2019-10-12 18:02] MED LIST changes: +CLEOCIN HCL300 MG PO; +HYDROCODON-ACE1 EAC7 PO
[2019-10-12 18:09] VITALS: Ht 157.5 cm; Wt 76.4 kg
[2019-10-12 18:48] LABS: BASOPHILS 0.2 % (0-2); EOSINOPHILS 0.1 % (0-7); HEMATOCRIT 44.5 % (36.0-48.0); HEMOGLOBIN 15.5 g/dL (12-16); IMMATURE GRANULOCYTES 0.3 % (0-5); MCH 31.7 pg (26.0-34.0); MCHC 34.8 g/dL (31.0-37.0); MEAN PLATELET VOLUME 9.9 fL (7.4-10.4); MONOCYTES 6.3 % (2-11); NEUTROPHILS 62.1 % (40-80); PLATELET COUNT 257 10x3/uL (130-400); RBC 4.89 10x6/uL (4.00-5.40); RDW 12.7 % (11.5-14.5); WBC 8.8 10x3/uL (4.8-10.8)
[2019-10-12 19:02] LABS: CALC OSMOLALITY 280 mosm/kg (275-300); CARBON DIOXIDE 28.6 mmol/L (21.0-32.0); CHLORIDE - SERUM 100 mmol/L (98-107); CREATININE - SERUM 0.6 mg/dL (0.6-1.3); POTASSIUM - SERUM 4.1 mmol/L (3.5-5.1); SODIUM 135 mmol/L (136-145); UREA NITROGEN 13 mg/dL (7-18); eGFR NON AFRICAN AMERICAN > 90 mL/min (90-120)
[2019-10-12 19:05] LABS: GLUCOSE 302 mg/dL (74-106)
[2019-10-12 19:08] LABS: ALBUMIN 3.5 g/dL (3.4-5.0); ALKALINE PHOSPHATASE 69 U/L (30-120); ALT (SGPT) 37 U/L (10-68); BILIRUBIN - TOTAL 0.35 mg/dL (0.2-1.3); C-REACTIVE PROTEIN 0.4 mg/dL (0.0-0.9); PROTEIN - SERUM 7.2 g/dL (6.4-8.2)
[2019-10-12] MEDS ORDERED: EC-NAPROSYN500 MG PO (19:32)
[2019-10-12] MEDS ORDERED: CLEOCIN HCL300 MG PO (19:32)
[2019-10-12 21:08] VITALS: BP 132/84
== END 2019-10-12 20:44 | disposition home or self-care (01) ==
LOC: D.ER 18:02
PROVIDERS: Family Medicine
DX: L02.214 Cutaneous abscess of groin (principal); E11.65 Type 2 diabetes mellitus with hyperglycemia; Z79.84 Long term (current) use of oral hypoglycemic drugs